=== PATIENT | male | born 1960 | race Caucasian/White ===

== ENCOUNTER 2017-03-13 03:30 | Emergency (ER) | payer OTHER ==
[~2017-03-13] VITALS: Ht 172.7 cm; Wt 77.0 kg
[~2017-03-13 03:30] MED LIST: ASCORBIC ACID500 M3 PO; CONSTULOSE10 GM/15 M PO; DAILY VALUE1 EACH PO; FISH OIL 1,0001 EAC7 PO; LABETALOL HCL100 MG PO; NORVASC5 MG PO; NOVOLOG; PLAVIX75 MG PO; VITAMIN D32000 UNI1 PO
[2017-03-13 04:27] LABS: INTER. NORMALIZED RATIO 1.6; PROTHROMBIN TIME 17.7 SEC (10.2-12.9)
[2017-03-13 04:36] LABS: EOSINOPHIL (%) 0 % (0-5); HEMATOCRIT 39.1 % (38.0-50.0); IMMATURE GRANULOCYTE (%) 0.2 % (0.0-0.7); INSTRUMENT ABS NEUTROPHIL CT 4.7 K/uL; LYMPHOCYTE COUNT 0.8 K/uL (1.0-2.8); MCH 30.5 PG (29.0-34.0); MCHC 35.3 G/DL (30.0-36.0); MCV 86.5 FL (86-99); MONOCYTE (%) 6.9 % (3-12); MONOCYTE COUNT 0.4 K/uL (0-0.8); NEUTROPHIL (%) 78.7 % (45-76); NEUTROPHIL COUNT 4.7 K/uL (1.8-6.4); PLATELET COUNT 201 K/uL (156-360); RBC DIS.WIDTH-CV 11.8 % (11.8-14.6); RBC DIS.WIDTH-SD 37.9 % (39-53); RED BLOOD COUNT 4.52 M/uL (4.00-5.50); WHITE BLOOD COUNT 5.9 K/uL (4.1-10.2)
[2017-03-13] MEDS ORDERED: KEFLEX500 MG PO (05:01)
[2017-03-13 05:32] VITALS: BP 166/72
== END 2017-03-13 05:33 | disposition home or self-care (01) ==
LOC: EXP 03:30 → EME 03:30 → EXP 05:33
PROC: 2Y41X5Z Packing of Nasal Region using Packing Material (ICD-10-PCS; principal; 2017-03-13)
DX: R04.0 Epistaxis (principal); Z79.01 Long term (current) use of anticoagulants; Z79.02 Long term (current) use of antithrombotics/antiplatelets; I10 Essential (primary) hypertension; E11.9 Type 2 diabetes mellitus without complications; Z79.4 Long term (current) use of insulin; Z95.1 Presence of aortocoronary bypass graft
CPT/HCPCS: 85025; 85610; 99281; 99284

== ENCOUNTER 2017-04-21 12:56 | Observation (INO) | payer OTHER ==
[~2017-04-21] VITALS: Ht 172.7 cm; Wt 73.9 kg
[~2017-04-21 12:56] MED LIST changes: +KEFLEX500 MG PO
[2017-04-21 14:12] LABS: HEMATOCRIT 38.3 % (38.0-50.0); MCHC 34.2 G/DL (30.0-36.0); MCV 87.6 FL (86-99); MEAN PLAT.VOLUME 9.6 uM^3 (9.0-12.4); PLATELET COUNT 258 K/uL (156-360); RBC DIS.WIDTH-CV 11.9 % (11.8-14.6); RBC DIS.WIDTH-SD 38.8 % (39-53); RED BLOOD COUNT 4.37 M/uL (4.00-5.50); WHITE BLOOD COUNT 10.7 K/uL (4.1-10.2)
[2017-04-21 14:18] LABS: INTER. NORMALIZED RATIO 2.3; PROTHROMBIN TIME 26.6 SEC (10.2-12.9)
[2017-04-21 14:20] LABS: CHLORIDE 101 mEq/L (99-109); POTASSIUM 4.4 mEq/L (3.7-5.4); SODIUM 134 mEq/L (136-147)
[2017-04-21 14:21] LABS: PTT 40.4 SEC (25-37)
[2017-04-21 14:22] LABS: GLUCOSE 98 mg/dL (70-99)
[2017-04-21 14:23] LABS: ANION GAP 6 MEQ/L (2-14)
[2017-04-21 14:24] LABS: TOTAL BILIRUBIN 0.6 mg/dL (0.0-1.0)
[2017-04-21 14:25] LABS: ALKALINE PHOSPHATASE 67 IU/L (3-129)
[2017-04-21 14:26] LABS: GFR ESTIMATE (CALCULATED) > 59 mL/min/
[2017-04-21 14:27] LABS: UREA NITROGEN (BUN) 9 mg/dL (9-23)
[2017-04-21] MEDS ORDERED: AZITHROMYCIN250 MG PO (14:30)
[2017-04-21 14:32] LABS: TROP-I INTERPRETATION INDETERMINATE; TROPONIN-I 0.32 ng/mL (0.0-0.30)
[2017-04-21] MEDS ORDERED: LOSARTAN POTASS50 MG PO (14:34)
[2017-04-21] MEDS ORDERED: FUROSEMIDE20 MG PO (14:35)
[2017-04-21] MEDS ORDERED: NOVOLOG 10100 UNITS/ SC (14:57)
[2017-04-21] MEDS ORDERED: NITROSTAT0.6 MG SL (16:08)
[2017-04-21] MEDS ORDERED: TESSALON200 MG PO (16:09)
[2017-04-21] MEDS ORDERED: IMDUR30 MG PO (16:09)
[2017-04-21] MEDS ORDERED: COUMADIN5 MG PO (16:11)
[2017-04-21] MEDS ORDERED: [UNRECOGNIZED DRUG - OTHER] PO (16:13)
[2017-04-21] MEDS ORDERED: CARDIO PLUS PO (16:14)
[2017-04-21 17:46] LABS: TROP-I INTERPRETATION INDETERMINATE; TROPONIN-I 0.33 ng/mL (0.0-0.30)
[2017-04-21 18:21] VITALS: BP 165/79
[2017-04-21 19:25] VITALS: BP 184/80
[2017-04-21] MEDS ORDERED: ATIVAN1 MG PO (19:35)
[2017-04-21 22:22] LABS: POINT-OF-CARE METER ID UU14314088
[2017-04-21 23:09] VITALS: BP 160/80
[2017-04-22 03:09] VITALS: BP 130/72
[2017-04-22 03:17] LABS: HEMATOCRIT 34.7 % (38.0-50.0); MCH 29.9 PG (29.0-34.0); MCV 87.8 FL (86-99); MEAN PLAT.VOLUME 9.8 uM^3 (9.0-12.4); PLATELET COUNT 226 K/uL (156-360); RED BLOOD COUNT 3.95 M/uL (4.00-5.50); WHITE BLOOD COUNT 7.8 K/uL (4.1-10.2)
[2017-04-22 03:37] LABS: TROP-I INTERPRETATION INDETERMINATE; TROPONIN-I 0.33 ng/mL (0.0-0.30)
[2017-04-22 03:45] LABS: CHLORIDE 103 mEq/L (99-109); POTASSIUM 4.2 mEq/L (3.7-5.4); SODIUM 136 mEq/L (136-147)
[2017-04-22 03:48] LABS: ANION GAP 7 MEQ/L (2-14)
[2017-04-22 03:50] LABS: GFR ESTIMATE (CALCULATED) > 59 mL/min/
[2017-04-22 03:51] LABS: UREA NITROGEN (BUN) 10 mg/dL (9-23)
[2017-04-22 03:53] LABS: GLUCOSE 155 mg/dL (70-99)
[2017-04-22 09:00] VITALS: BP 132/76
[2017-04-22 09:11] LABS: POINT-OF-CARE METER ID UU14174216
[2017-04-22 11:21] VITALS: BP 124/60
[2017-04-22 11:52] LABS: PROTHROMBIN TIME 22.7 SEC (10.2-12.9)
[2017-04-22 13:04] LABS: POINT-OF-CARE METER ID UU13113781
== END 2017-04-22 14:20 | disposition home or self-care (01) ==
LOC: EME 12:56 → EDOF 15:55 → 4EAST 15:55 → ENRESERV 15:56 → 4EAST 18:05
PROVIDERS: Hospitalist; Nurse Practitioner Family
DX: I25.110 Atherosclerotic heart disease of native coronary artery with unstable angina pectoris (principal); Z95.1 Presence of aortocoronary bypass graft; R04.0 Epistaxis; I25.2 Old myocardial infarction; E11.59 Type 2 diabetes mellitus with other circulatory complications; I73.9 Peripheral vascular disease, unspecified; Z95.828 Presence of other vascular implants and grafts; R94.31 Abnormal electrocardiogram [ECG] [EKG]; E78.5 Hyperlipidemia, unspecified; I10 Essential (primary) hypertension; Z89.512 Acquired absence of left leg below knee; Z79.4 Long term (current) use of insulin; Z79.01 Long term (current) use of anticoagulants; Z88.1 Allergy status to other antibiotic agents; Z88.5 Allergy status to narcotic agent; Z88.8 Allergy status to other drugs, medicaments and biological substances; Z91.018 Allergy to other foods
CPT/HCPCS: 71020; 80048; 80053; 82948; 84484; 85027; 85610; 85730; 93005; 99281; 99285; G0378; J1815; J7030

== ENCOUNTER 2017-06-05 09:50 | Emergency (ER) | payer OTHER ==
[~2017-06-05] VITALS: Ht 172.7 cm; Wt 58.9 kg
[~2017-06-05 09:50] MED LIST changes: +ATARAX,VISTARIL25 MG PO; +AZITHROMYCIN250 MG PO; +CARDIO PLUS PO; +COUMADIN5 MG PO; +FUROSEMIDE20 MG PO; +IMDUR30 MG PO; +INSULIN PUMP MC; +LOSARTAN POTASS50 MG PO; +NITROSTAT0.6 MG SL; +TESSALON200 MG PO; +[UNRECOGNIZED DRUG - OTHER] PO
[2017-06-05 10:57] LABS: HEMATOCRIT 39.6 % (38.0-50.0); HEMOGLOBIN 13.7 G/DL (12.5-16.6); MCH 30.2 PG (29.0-34.0); MCHC 34.6 G/DL (30.0-36.0); MCV 87.2 FL (86-99); PLATELET COUNT 210 K/uL (156-360); RBC DIS.WIDTH-CV 12.7 % (11.8-14.6); RBC DIS.WIDTH-SD 40.3 % (39-53); RED BLOOD COUNT 4.54 M/uL (4.00-5.50); WHITE BLOOD COUNT 9.5 K/uL (4.1-10.2)
[2017-06-05 11:16] LABS: CHLORIDE 103 mEq/L (99-109); POTASSIUM 4.5 mEq/L (3.7-5.4); SODIUM 138 mEq/L (136-147)
[2017-06-05 11:17] LABS: MAGNESIUM 2.1 mg/dL (1.3-2.7)
[2017-06-05 11:18] LABS: GLUCOSE 105 mg/dL (70-99)
[2017-06-05 11:20] LABS: TROP-I INTERPRETATION NEGATIVE; TROPONIN-I 0.07 ng/mL (0.0-0.30)
[2017-06-05 11:22] LABS: CREATININE 0.9 mg/dL (0.6-1.3); GFR ESTIMATE (CALCULATED) > 59 mL/min/ (58.99-99999)
[2017-06-05 11:23] LABS: UREA NITROGEN (BUN) 14 mg/dL (9-23)
[2017-06-05] MEDS ORDERED: NOVOLOG PE100 UNITS/ SC (14:29)
[2017-06-05 15:17] LABS: TROP-I INTERPRETATION NEGATIVE; TROPONIN-I 0.07 ng/mL (0.0-0.30)
[2017-06-05 16:00] VITALS: BP 162/66
== END 2017-06-05 16:27 | disposition home or self-care (01) ==
LOC: EME 09:50 → EDOF 13:41 → EME 13:41 → EDOF 13:41 → ENRESERV 13:43 → EDOF 14:10 → CANRESERV 14:16 → ENRESERV 14:16 → CANRESERV 14:49 → ENRESERV 14:49
PROVIDERS: Emergency Medicine
DX: R07.9 Chest pain, unspecified (principal); Z95.1 Presence of aortocoronary bypass graft; E11.9 Type 2 diabetes mellitus without complications; I10 Essential (primary) hypertension; I25.2 Old myocardial infarction; F41.9 Anxiety disorder, unspecified; I73.9 Peripheral vascular disease, unspecified; Z79.4 Long term (current) use of insulin; Z79.02 Long term (current) use of antithrombotics/antiplatelets; Z88.5 Allergy status to narcotic agent; Z91.040 Latex allergy status; Z88.8 Allergy status to other drugs, medicaments and biological substances; Z88.0 Allergy status to penicillin
CPT/HCPCS: 71020; 80048; 83735; 84484; 85027; 93005; 99281; 99285

== ENCOUNTER 2017-07-13 12:08 | Emergency (ER) | payer OTHER ==
[~2017-07-13] VITALS: Ht 172.7 cm; Wt 77.2 kg
[~2017-07-13 12:08] MED LIST changes: +NOVOLOG PE100 UNITS/ SC
[2017-07-13 14:09] LABS: APPEARANCE CLEAR ((CLEAR)); BILIRUBIN NEGATIVE; BLOOD NEGATIVE; COLOR STRAW ((YELLOW)); GLUCOSE (STRIP) NEGATIVE; KETONES NEGATIVE; LEUKOCYTES NEGATIVE; NITRITE NEGATIVE; PROTEIN (STRIP) NEGATIVE; SPECIFIC GRAVITY 1.005 (1.000-1.030); UROBILINOGEN 0.2 MG/DL (0.2-1.0)
[2017-07-13 14:17] LABS: HEMATOCRIT 38.5 % (38.0-50.0); HEMOGLOBIN 13.7 G/DL (12.5-16.6); MCH 30.6 PG (29.0-34.0); MCHC 35.6 G/DL (30.0-36.0); MCV 85.9 FL (86-99); PLATELET COUNT 203 K/uL (156-360); RBC DIS.WIDTH-CV 12.6 % (11.8-14.6); RBC DIS.WIDTH-SD 39.2 % (39-53); RED BLOOD COUNT 4.48 M/uL (4.00-5.50); WHITE BLOOD COUNT 6.7 K/uL (4.1-10.2)
[2017-07-13 14:29] LABS: CHLORIDE 103 mEq/L (99-109); POTASSIUM 4.3 mEq/L (3.7-5.4); SODIUM 136 mEq/L (136-147)
[2017-07-13 14:30] LABS: MAGNESIUM 2.2 mg/dL (1.3-2.7)
[2017-07-13 14:31] LABS: GLUCOSE 97 mg/dL (70-99)
[2017-07-13 14:35] LABS: CREATININE 0.9 mg/dL (0.6-1.3); GFR ESTIMATE (CALCULATED) > 59 mL/min/ (58.99-99999)
[2017-07-13 14:36] LABS: UREA NITROGEN (BUN) 9 mg/dL (9-23)
[2017-07-13 14:49] LABS: CREATINE KINASE 133 IU/L (1-294)
[2017-07-13 15:28] VITALS: BP 126/56
== END 2017-07-13 15:30 | disposition home or self-care (01) ==
LOC: EME 12:08
PROVIDERS: Physician Assistant
DX: I10 Essential (primary) hypertension (principal); E11.9 Type 2 diabetes mellitus without complications; I25.2 Old myocardial infarction; F41.9 Anxiety disorder, unspecified; Z95.1 Presence of aortocoronary bypass graft; Z91.040 Latex allergy status; Z88.0 Allergy status to penicillin; Z88.6 Allergy status to analgesic agent; Z88.5 Allergy status to narcotic agent; Z88.1 Allergy status to other antibiotic agents; Z88.8 Allergy status to other drugs, medicaments and biological substances
CPT/HCPCS: 80048; 81003; 82550; 83735; 85027; 93005; 99281; 99284

== ENCOUNTER 2017-08-20 10:40 | Emergency (ER) | payer OTHER ==
[~2017-08-20] VITALS: Ht 172.7 cm; Wt 79.0 kg
[2017-08-20 11:43] LABS: BASOPHIL (%) 0.1 % (0-1); EOSINOPHIL (%) 0 % (0-5); HEMATOCRIT 36.7 % (38.0-50.0); HEMOGLOBIN 13.1 G/DL (12.5-16.6); IMMATURE GRANULOCYTE (%) 0.4 % (0.0-0.7); LYMPHOCYTE (%) 11.3 % (15-42); MCH 30.3 PG (29.0-34.0); MCHC 35.7 G/DL (30.0-36.0); MONOCYTE (%) 7.2 % (3-12); MONOCYTE COUNT 0.7 K/uL (0-0.8); NEUTROPHIL COUNT 7.4 K/uL (1.8-6.4); PLATELET COUNT 219 K/uL (156-360); RBC DIS.WIDTH-SD 37.2 % (39-53); RED BLOOD COUNT 4.32 M/uL (4.00-5.50); WHITE BLOOD COUNT 9.2 K/uL (4.1-10.2)
[2017-08-20] MEDS ORDERED: TOPROL XL50 MG PO (11:45)
[2017-08-20 11:52] LABS: CHLORIDE 97 mEq/L (99-109); POTASSIUM 4.3 mEq/L (3.7-5.4); SODIUM 128 mEq/L (136-147)
[2017-08-20 11:53] LABS: GLUCOSE 122 mg/dL (70-99)
[2017-08-20 11:57] LABS: CREATININE 0.9 mg/dL (0.6-1.3); GFR ESTIMATE (CALCULATED) > 59 mL/min/ (58.99-99999)
[2017-08-20 11:58] LABS: UREA NITROGEN (BUN) 11 mg/dL (9-23)
[2017-08-20 12:04] LABS: TROP-I INTERPRETATION NEGATIVE
[2017-08-20 15:31] LABS: TROP-I INTERPRETATION NEGATIVE; TROPONIN-I 0.06 ng/mL (0.0-0.30)
[2017-08-20] MEDS ORDERED: HYDROCHLOROTHIA25 MG PO (16:27)
[2017-08-20 16:38] VITALS: BP 143/65
== END 2017-08-20 16:39 | disposition home or self-care (01) ==
LOC: EME 10:40
PROVIDERS: Physician Assistant
DX: R07.9 Chest pain, unspecified (principal); I10 Essential (primary) hypertension; E10.9 Type 1 diabetes mellitus without complications; I25.2 Old myocardial infarction; Z79.4 Long term (current) use of insulin; F41.9 Anxiety disorder, unspecified; K21.9 Gastro-esophageal reflux disease without esophagitis; Z95.1 Presence of aortocoronary bypass graft; Z88.8 Allergy status to other drugs, medicaments and biological substances; Z88.0 Allergy status to penicillin
CPT/HCPCS: 71046; 80048; 84484; 85025; 93005; 99281; 99284

== ENCOUNTER 2017-12-22 02:00 | Observation (INO) | payer OTHER ==
[~2017-12-22] VITALS: Ht 172.7 cm; Wt 79.5 kg
[~2017-12-22 02:00] MED LIST changes: +HYDROCHLOROTHIA25 MG PO; +TOPROL XL50 MG PO
[2017-12-22 02:40] LABS: HEMATOCRIT 37.7 % (38.0-50.0); HEMOGLOBIN 14.1 G/DL (12.5-16.6); MCH 31.1 PG (29.0-34.0); MCHC 37.4 G/DL (30.0-36.0); PLATELET COUNT 230 K/uL (156-360); RBC DIS.WIDTH-CV 11.9 % (11.8-14.6); RBC DIS.WIDTH-SD 35.8 % (39-53); RED BLOOD COUNT 4.54 M/uL (4.00-5.50); WHITE BLOOD COUNT 8.2 K/uL (4.1-10.2)
[2017-12-22 03:02] LABS: TROP-I INTERPRETATION NEGATIVE; TROPONIN-I 0.06 ng/mL (0.0-0.30)
[2017-12-22 03:07] LABS: ALBUMIN 4.4 g/dL (3.2-4.8); CHLORIDE 90 mEq/L (99-109); SODIUM 125 mEq/L (136-147)
[2017-12-22 03:10] LABS: GLUCOSE 174 mg/dL (70-99)
[2017-12-22 03:12] LABS: TOTAL BILIRUBIN 1.2 mg/dL (0.0-1.0)
[2017-12-22 03:13] LABS: ALKALINE PHOSPHATASE 89 IU/L (3-129); CREATININE 0.9 mg/dL (0.6-1.3); GFR ESTIMATE (CALCULATED) > 59 mL/min/ (58.99-99999)
[2017-12-22 03:14] LABS: UREA NITROGEN (BUN) 12 mg/dL (9-23)
[2017-12-22 03:15] LABS: AST (GOT) 21 IU/L (2-34); DIRECT BILIRUBIN 0.5 mg/dL (0.0-0.3)
[2017-12-22 03:16] LABS: ALT (GPT) 20 IU/L (3-49)
[2017-12-22 03:17] LABS: LIPASE 13 U/L (1.0-51.0)
[2017-12-22 04:06] LABS: MAGNESIUM 1.9 mg/dL (1.3-2.7)
[2017-12-22 04:11] LABS: PHOSPHORUS 2.1 mg/dL (2.5-4.9)
[2017-12-22 05:59] VITALS: BP 140/75
[2017-12-22 09:21] LABS: TROP-I INTERPRETATION NEGATIVE; TROPONIN-I 0.07 ng/mL (0.0-0.30)
[2017-12-22 11:58] VITALS: BP 119/59
[2017-12-22 15:27] LABS: TROP-I INTERPRETATION NEGATIVE; TROPONIN-I 0.06 ng/mL (0.0-0.30)
[2017-12-22 16:17] LABS: THYROTROPIN (TSH) 1.7 MIU/L (0.4-5.5)
== END 2017-12-22 18:31 | disposition left against medical advice (07) ==
LOC: EME 02:00 → EDOF 04:01 → ENRESERV 04:04 → 4SOUTH 05:43
PROVIDERS: Emergency Medicine; Nurse Practitioner Adult Health
DX: R07.9 Chest pain, unspecified (principal); E87.1 Hypo-osmolality and hyponatremia; I10 Essential (primary) hypertension; G47.00 Insomnia, unspecified; I25.10 Atherosclerotic heart disease of native coronary artery without angina pectoris; I25.2 Old myocardial infarction; Z95.1 Presence of aortocoronary bypass graft; E11.51 Type 2 diabetes mellitus with diabetic peripheral angiopathy without gangrene; E78.5 Hyperlipidemia, unspecified; K21.9 Gastro-esophageal reflux disease without esophagitis; F41.9 Anxiety disorder, unspecified; Z89.511 Acquired absence of right leg below knee; Z82.49 Family history of ischemic heart disease and other diseases of the circulatory system; Z83.3 Family history of diabetes mellitus; Z79.4 Long term (current) use of insulin; Z96.41 Presence of insulin pump (external) (internal); Z79.02 Long term (current) use of antithrombotics/antiplatelets; Z88.0 Allergy status to penicillin; Z88.1 Allergy status to other antibiotic agents; Z88.8 Allergy status to other drugs, medicaments and biological substances; Z88.6 Allergy status to analgesic agent; Z91.040 Latex allergy status; Z91.048 Other nonmedicinal substance allergy status
CPT/HCPCS: 71046; 80048; 80076; 82533 91; 83690; 83735; 83930; 84100; 84295; 84300; 84443; 84484; 85027; 93005; 99281; 99285; G0378; J2060; J3010; J7030